=== PATIENT | female | born 1955 | race Caucasian/White ===

== ENCOUNTER 2020-11-08 11:34 | Day surgery (SDC) | payer OTHER ==
[~2020-11-08] VITALS: Ht 167.6 cm; Wt 72.6 kg
[~2020-11-08 11:34] MED LIST: EFFEXOR XR37.5 MG PO; ELIQUIS2.5 MG PO; MOBIC15 MG PO; MULTI-DAY VITA1 EACH PO; NORCO 7.5-3251 EACH PO
== END 2020-11-08 19:40 | disposition home or self-care (01) ==
LOC: ER1 11:34 → OR 13:36 → MED SURG 4 15:15 → CDU 15:15 → ER1 15:15 → M/S 15:34 → CDU 15:34 → M/S 15:36 → CDU 15:36 → M/S 16:28 → CDU 16:28 → M/S 19:40 → OR 19:40
DX: T84.020A Dislocation of internal right hip prosthesis, initial encounter (principal); F32.9 Major depressive disorder, single episode, unspecified; Z96.643 Presence of artificial hip joint, bilateral; Z79.899 Other long term (current) drug therapy; Z20.822 Contact with and (suspected) exposure to COVID-19; X58.XXXA Exposure to other specified factors, initial encounter
CPT/HCPCS: 73501; 73502; 76000; 96374; 96375; 99284; G0378; J1100; J2001; J2250; J2270; J2405; J2704; J3010; J7120; U0002